=== PATIENT | female | born 1985 ===

== ENCOUNTER 2021-07-22 17:39 | Emergency (ER) | payer MEDICAID ==
--- NOTE | 2021-07-22 18:53 | CR ---
PROCEDURE INFORMATION: Exam: XR Left Knee Exam date and time: 07/22/2021 6:35 PM Age: 36 years old Clinical indication: Other: No trauma; Additional info: "knee gives out" TECHNIQUE: Imaging protocol: XR Left knee. Views: 3 views. COMPARISON: No relevant prior studies available. FINDINGS: Bones/joints: The alignment of the joints is anatomic and the joint spaces are maintained. There is no evidence of acute fracture. There is no evidence of a joint effusion. Soft tissues: Unremarkable. IMPRESSION: Normal appearing knee.
--- NOTE | 2021-07-22 19:11 | EDM.PDOC ---
ED HPI GENERAL MEDICAL PROBLEM - General Chief Complaint: Lower Extremity Injury/Pain Stated Complaint: COVID SYMPTOMS ([id number]) Time Seen by Provider: 07/22/21 19:15 Source of Information: Reports: Patient History Limitations: Reports: No Limitations - History of Present Illness INITIAL COMMENTS - FREE TEXT/NARRATIVE: ED ambulatory with c/o left knee feeling unstable like wants to give out. No pain or swelling, some "clicking noise" Ongoing x one year. Reports being in care home so not able to have looked at. Denied injury to knee. - Related Data Allergies Allergy/AdvReac Type Severity Reaction Status Date / Time No Known Allergies Allergy Verified 07/22/21 18:19 Home Meds: Home Meds . [No Known Home Meds] 07/22/21 [History] Past Medical History - Past Health History Medical/Surgical History: Denies Medical/Surgical History Social & Family History - Family History Family Medical History: No Pertinent Family History - Tobacco Use Tobacco Use Status *Q: Never Tobacco User - Caffeine Use Caffeine Use: Reports: None - Recreational Drug Use Recreational Drug Use: No Review of Systems - Review of Systems Review Of Systems: Comprehensive ROS is negative, except as noted in HPI. ED EXAM, GENERAL - Physical Exam Exam: See Below Exam Limited By: No Limitations General Appearance: Alert, No Apparent Distress Eye Exam: Bilateral Eye: EOMI Ears: Normal External Exam, Hearing Grossly Normal Nose: Normal Inspection Throat/Mouth: Normal Inspection, Normal Voice, No Airway Compromise Head: Atraumatic, Normocephalic Neck: Full Range of Motion Respiratory/Chest: No Respiratory Distress, Lungs Clear, Normal Breath Sounds Cardiovascular: Regular Rate, Rhythm Extremities: Normal Range of Motion, Other (Slight crepitus with full extension). No: Joint Swelling, Limited Range of Motion ( No laxity noted, ) Psychiatric: Normal Affect Skin Exam: Warm, Dry, Intact, Normal Color Course - Vital Signs Last Recorded V/S: Last Vital Signs Temp 97.8 F 07/22/21 18:50 Pulse 81 07/22/21 18:50 Resp 20 07/22/21 18:50 BP 122/81 07/22/21 18:50 Pulse Ox 96 07/22/21 18:50 Departure - Departure Time of Disposition: 19:45 Disposition: Home, Self-Care 01 Condition: Good Clinical Impression: Knee ligamentous laxity Qualifiers: Laterality: left Qualified Code(s): M23.92 - Unspecified internal derangement of left knee - Discharge Information *PRESCRIPTION DRUG MONITORING PROGRAM REVIEWED*: No *COPY OF PRESCRIPTION DRUG MONITORING REPORT IN PATIENT LILLY: No Instructions: Knee Sprain, Adult, [id number], How to Use a Knee Brace Referrals: PCP,None [Primary Care Provider] - Forms: ED Department Discharge Additional Instructions: obtain knee immobilizer for support follow up n clinic if not improving may need MRI to determine iligament involvement may alternate tylenol 500mg and ibuprofen 600mg every 4 hours as needed for discomfort Sepsis Event Note (ED) - Evaluation Sepsis Screening Result: No Definite Risk - Focused Exam Vital Signs: Vital Signs Temp Pulse Resp BP Pulse Ox 07/22/21 18:50 97.8 F 81 20 122/81 96
== END 2021-07-22 19:36 | disposition home or self-care (01) ==
LOC: DL.ED 17:39
DX: M23.92 Unspecified internal derangement of left knee (principal)
CPT/HCPCS: 73562-LT; 99283